=== PATIENT | female | born 1955 | race Caucasian/White ===

== ENCOUNTER 2020-08-03 08:13 | Inpatient (IN) ==
[2020-08-03 10:07] LABS: Basophils % 0.3 % (0.0-0.8); Eosinophils % 0.3 % (0.00-10.9); Hemoglobin 10.8 GM/DL (12.0-16.0); Immature Granulocytes % 0.4 %; Immature Granulocytes Absolute 0.05 #; Lymphocytes # 1.3 10*3/uL (1.4-4.0); Lymphocytes % 10.4 % (21.3-54.2); Mean Corpuscular Volume 75.3 FL (87-102); Mean Platelet Volume 10.6 FL (9.6-12.0); Monocytes % 6.1 % (1.7-12.7); Neutrophils % 82.5 % (38.7-73.9); Platelet Count 312 T/CUMM (130-400); Red Blood Count 4.78 MC/CUMM (3.8-5.5); Red Cell Distribution Width 16.7 % (9.3-17.3); White Blood Count 12.7 T/CUMM (4-12)
[2020-08-03] MEDS ORDERED: KETOROLAC 30 MG/1 ML VIAL IM STA (10:11)
[2020-08-03 10:51] LABS: Calcium 9.1 MG/DL (8.5-10.1); Osmolality,Calculated 274.2 MOS/KG (273-304); Potassium 3.7 MMOL/L (3.5-5.1); Uric Acid 4.1 MG/DL (2.6-6.0)
[2020-08-03 11:10] LABS: PT Patient Result 11.2 SECS (10.5-12.0)
[2020-08-03] MEDS ORDERED: HYDROmorphone 2 MG/1 ML VIAL IV STA (13:21)
[2020-08-03] MEDS ORDERED: ONDANSETRON 4 MG/2 ML VIAL IV ONE (13:21)
[2020-08-03 13:37] LABS: Cholesterol Crystals None Seen /LPF
[2020-08-03 13:48] LABS: Lymphocytes,Synovial Fluid 2 %; Neutrophils,Synovial Fluid 91 %
[2020-08-03] MEDS ORDERED: BACITRACIN 50,000 UNIT VIAL ONE (14:54)
[2020-08-03] MEDS ORDERED: ONDANSETRON 4 MG/2 ML VIAL IV PRN (14:57)
[2020-08-03] MEDS ORDERED: GLUCAGON 1 MG VIAL IM PRN (14:57)
[2020-08-03] MEDS ORDERED: DEXTROSE 50% 25 GM/50 ML VIAL IV PRN (14:57)
[2020-08-03] MEDS ORDERED: hydrALAZINE 20 MG/1 ML VIAL IV PRN (14:57)
[2020-08-03] MEDS ORDERED: MORPHINE 4 MG/1 ML VIAL IV PRN (14:57)
[2020-08-03] MEDS ORDERED: ACETAMINOPHEN 325 MG TABLET PO PRN (14:57)
[2020-08-03] MEDS ORDERED: BUPIVACAINE MPF 0.25% 30 ML VIAL ONE (15:09)
[2020-08-03] MEDS ORDERED: MIDAZOLAM 2 MG/2 ML VIAL ONE (15:17)
[2020-08-03] MEDS ORDERED: fentaNYL 100 MCG/2 ML VIAL ONE ×2 (15:17→15:54)
[2020-08-03] MEDS ORDERED: VANCOMYCIN INJ 1,000 MG in SODIUM CHLORIDE 0.9% 250 ML IV SCH (15:30)
[2020-08-03] MEDS ORDERED: VANCOMYCIN 1,000 MG VIAL ONE (15:44)
[2020-08-03] MEDS ORDERED: SEVOFLURANE 1 UNIT/15 MINUTE INH ONE ×4 (16:08→16:18)
[2020-08-03] MEDS ORDERED: DEXAMETHASONE 4 MG/1 ML VIAL ONE (16:08)
[2020-08-03] MEDS ORDERED: LACTATED RINGERS 1,000 ML IV ONE (16:08)
[2020-08-03] MEDS ORDERED: SUCCINYLCHOLINE 200 MG/10 ML VIAL ONE (16:08)
[2020-08-03] MEDS ORDERED: propofoL 200 MG/20 ML VIAL IV ONE (16:08)
[2020-08-03] MEDS ORDERED: SODIUM CHLORIDE 0.9% 250 ML IV ONE (16:08)
[2020-08-03] MEDS ORDERED: ROCURONIUM 50 MG/5 ML VIAL IV ONE (16:08)
[2020-08-03] MEDS ORDERED: LIDOCAINE 2% 5 ML VIAL ONE (16:08)
[2020-08-03] MEDS ORDERED: ONDANSETRON 4 MG/2 ML VIAL ONE (16:08)
[2020-08-03 16:51] LABS: Cholesterol Crystals None Seen /LPF
[2020-08-03 16:52] LABS: Cholesterol Crystals None Seen /LPF
[2020-08-03] MEDS: SODIUM CHLORIDE 0.9% 1,000 ML IV SCH (17:38)
[2020-08-03] MEDS ORDERED: VANCOMYCIN INJ 2,250 MG in SODIUM CHLORIDE 0.9% 500 ML IV ONE (20:00)
[2020-08-03] MEDS: POTASSIUM CHLORIDE 10 MEQ TABLET PO SCH (22:05)
[2020-08-03] MEDS: MONTELUKAST 10 MG TABLET PO SCH (22:05)
[2020-08-03] MEDS: PARoxetine 20 MG TABLET PO SCH (22:05)
[2020-08-03] MEDS: AMITRIPTYLINE 25 MG TABLET PO SCH (22:06)
[2020-08-03] MEDS: LUBIPROSTONE 24 MCG CAPSULE PO SCH (22:06)
[2020-08-03] MEDS: INSULIN LISPRO 100 UNIT/ML SUBCUT SCH (22:06)
[2020-08-03] MEDS: ATORVASTATIN 40 MG TABLET PO SCH (22:06)
[2020-08-04 03:47] LABS: Bacteria,Urine Occasional /HPF (Few); Bilirubin,Urine Negative (Negative); Blood, Urine Negative (Negative); Glucose,Urine (UA) >=500 mg/dL (Negative); Ketones,Urine 5 mg/dL (Negative); Mucus,Urine Occasional /LPF (Occasional); Nitrite,Urine Negative (Negative); Protein,Urine Negative; RBC,Urine 1 /HPF (0-4); Squamous Epithelial Cell,Urine Occasional /HPF (0-10); Urine Appearance CLEAR (Clear); Urine Color Straw (Yellow); Urine Urobilinogen < 2.0 EU/DL (0.2-1.0)
[2020-08-04 06:33] LABS: Basophils % 0.3 % (0.0-0.8); Eosinophils % 0.1 % (0.00-10.9); Hematocrit 29.4 VOL% (35.7-47.0); Hemoglobin 9.1 GM/DL (12.0-16.0); Immature Granulocytes % 0.4 %; Immature Granulocytes Absolute 0.04 #; Lymphocytes # 1.5 10*3/uL (1.4-4.0); Lymphocytes % 14.7 % (21.3-54.2); Mean Platelet Volume 10.5 FL (9.6-12.0); Monocytes % 8.9 % (1.7-12.7); Neutrophils % 75.6 % (38.7-73.9); Platelet Count 277 T/CUMM (130-400); Red Blood Count 3.87 MC/CUMM (3.8-5.5); Red Cell Distribution Width 16.8 % (9.3-17.3); White Blood Count 10.2 T/CUMM (4-12)
[2020-08-04 07:07] LABS: Calcium 8.8 MG/DL (8.5-10.1); Osmolality,Calculated 277.1 MOS/KG (273-304); Potassium 3.6 MMOL/L (3.5-5.1); Risk Ratio 3.85; Thyroid Stimulating Hormone 0.883 uIU/ml (0.358-3.74)
[2020-08-04] MEDS: LUBIPROSTONE 24 MCG CAPSULE PO SCH ×2 (08:44→20:02)
[2020-08-04] MEDS: INSULIN LISPRO 100 UNIT/ML SUBCUT SCH ×4 (08:44→20:02)
[2020-08-04] MEDS: hydroCHLOROthiazide 25 MG TABLET PO SCH (08:45)
[2020-08-04] MEDS: POTASSIUM CHLORIDE 10 MEQ TABLET PO SCH ×2 (08:45→20:02)
[2020-08-04] MEDS: PANTOPRAZOLE 40 MG TABLET PO SCH (08:46)
[2020-08-04] MEDS: LEVOTHYROXINE 100 MCG TABLET PO SCH (08:46)
[2020-08-04] MEDS: glipiZIDE 10 MG TABLET PO SCH (08:46)
[2020-08-04] MEDS: sitaGLIPtin 100 MG TABLET PO SCH (08:46)
[2020-08-04] MEDS: VANCOMYCIN INJ 1,250 MG in SODIUM CHLORIDE 0.9% 250 ML IV SCH ×2 (11:12→20:03)
[2020-08-04] MEDS: SODIUM CHLORIDE 0.9% 1,000 ML IV SCH (14:37)
[2020-08-04] MEDS: PARoxetine 20 MG TABLET PO SCH (20:01)
[2020-08-04] MEDS: AMITRIPTYLINE 25 MG TABLET PO SCH (20:01)
[2020-08-04] MEDS: ATORVASTATIN 40 MG TABLET PO SCH (20:02)
[2020-08-04] MEDS: MONTELUKAST 10 MG TABLET PO SCH (20:02)
[2020-08-05 05:52] LABS: Basophils % 0.3 % (0.0-0.8); Eosinophils # 0.1 10*3/uL (0.0-0.87); Eosinophils % 1.6 % (0.00-10.9); Hematocrit 28.6 VOL% (35.7-47.0); Hemoglobin 8.4 GM/DL (12.0-16.0); Immature Granulocytes % 0.9 %; Immature Granulocytes Absolute 0.08 #; Lymphocytes # 2.2 10*3/uL (1.4-4.0); Lymphocytes % 24.7 % (21.3-54.2); Mean Corpuscular HGB Conc 29.4 GM/DL (32-36); Mean Corpuscular Volume 78.1 FL (87-102); Mean Platelet Volume 10.4 FL (9.6-12.0); Monocytes % 8.1 % (1.7-12.7); Neutrophils % 64.4 % (38.7-73.9); Platelet Count 252 T/CUMM (130-400); Red Blood Count 3.66 MC/CUMM (3.8-5.5); Red Cell Distribution Width 16.7 % (9.3-17.3); White Blood Count 8.7 T/CUMM (4-12)
[2020-08-05 06:11] LABS: Calcium 8.3 MG/DL (8.5-10.1); Osmolality,Calculated 272.5 MOS/KG (273-304)
[2020-08-05] MEDS ORDERED: POTASSIUM CHLORIDE 20 MEQ TABLET PO PRN (08:00)
[2020-08-05] MEDS ORDERED: POTASSIUM CHLORIDE RIDER 10 MEQ in PREMIX 1 EACH IV PRN (08:00)
[2020-08-05] MEDS: INSULIN LISPRO 100 UNIT/ML SUBCUT SCH ×4 (08:57→20:34)
[2020-08-05] MEDS: glipiZIDE 10 MG TABLET PO SCH (08:57)
[2020-08-05] MEDS: sitaGLIPtin 100 MG TABLET PO SCH (08:57)
[2020-08-05] MEDS: hydroCHLOROthiazide 25 MG TABLET PO SCH (08:57)
[2020-08-05] MEDS: LEVOTHYROXINE 100 MCG TABLET PO SCH (08:57)
[2020-08-05] MEDS: POTASSIUM CHLORIDE 10 MEQ TABLET PO SCH ×2 (08:57→20:33)
[2020-08-05] MEDS: PANTOPRAZOLE 40 MG TABLET PO SCH (08:57)
[2020-08-05] MEDS: POTASSIUM CHLORIDE 20 MEQ TABLET PO SCH ×2 (08:58→13:38)
[2020-08-05] MEDS: SODIUM CHLORIDE 0.9% 1,000 ML IV SCH (08:58)
[2020-08-05] MEDS: VANCOMYCIN INJ 1,250 MG in SODIUM CHLORIDE 0.9% 250 ML IV SCH ×2 (08:58→20:35)
[2020-08-05] MEDS: LUBIPROSTONE 24 MCG CAPSULE PO SCH ×2 (09:58→22:41)
[2020-08-05] MEDS ORDERED: NITROGLYCERIN SL 0.4 MG TABLET SL ONE (18:15)
[2020-08-05] MEDS ORDERED: NITROGLYCERIN SL 0.4 MG TABLET SL PRN (18:22)
[2020-08-05] MEDS: ATORVASTATIN 40 MG TABLET PO SCH (20:33)
[2020-08-05] MEDS: PARoxetine 20 MG TABLET PO SCH (20:33)
[2020-08-05] MEDS: AMITRIPTYLINE 25 MG TABLET PO SCH (20:33)
[2020-08-05] MEDS: MONTELUKAST 10 MG TABLET PO SCH (20:34)
[2020-08-06 07:02] LABS: Basophils % 0.5 % (0.0-0.8); Eosinophils # 0.1 10*3/uL (0.0-0.87); Eosinophils % 1.5 % (0.00-10.9); Hematocrit 27.7 VOL% (35.7-47.0); Hemoglobin 8.2 GM/DL (12.0-16.0); Immature Granulocytes % 0.4 %; Immature Granulocytes Absolute 0.03 #; Lymphocytes # 1.7 10*3/uL (1.4-4.0); Lymphocytes % 22.1 % (21.3-54.2); Mean Corpuscular HGB Conc 29.6 GM/DL (32-36); Mean Platelet Volume 10.8 FL (9.6-12.0); Monocytes % 8.7 % (1.7-12.7); Neutrophils % 66.8 % (38.7-73.9); Platelet Count 257 T/CUMM (130-400); Red Blood Count 3.55 MC/CUMM (3.8-5.5); Red Cell Distribution Width 16.8 % (9.3-17.3); White Blood Count 7.5 T/CUMM (4-12)
[2020-08-06 07:19] LABS: Calcium 8.4 MG/DL (8.5-10.1); Osmolality,Calculated 277.1 MOS/KG (273-304); Potassium 3.2 MMOL/L (3.5-5.1)
[2020-08-06 07:33] LABS: Eosinophils 2 % (0-10); Hypochromasia 1+; Lymphocytes 16 % (20-55); Segmented Neutrophils 73 % (50-85); Total Cells Counted 100
[2020-08-06 07:34] LABS: Microcytosis 1+; Ovalocytes Slight; Platelet Estimate Normal; Polychromasia Slight
[2020-08-06] MEDS: glipiZIDE 10 MG TABLET PO SCH (08:02)
[2020-08-06] MEDS: sitaGLIPtin 100 MG TABLET PO SCH (08:02)
[2020-08-06] MEDS: INSULIN LISPRO 100 UNIT/ML SUBCUT SCH ×4 (08:02→21:36)
[2020-08-06] MEDS: hydroCHLOROthiazide 25 MG TABLET PO SCH (08:03)
[2020-08-06] MEDS: LEVOTHYROXINE 100 MCG TABLET PO SCH (08:03)
[2020-08-06] MEDS: VANCOMYCIN INJ 1,250 MG in SODIUM CHLORIDE 0.9% 250 ML IV SCH ×2 (08:03→21:15)
[2020-08-06] MEDS: PANTOPRAZOLE 40 MG TABLET PO SCH (08:03)
[2020-08-06] MEDS: POTASSIUM CHLORIDE 10 MEQ TABLET PO SCH ×2 (08:03→21:14)
[2020-08-06] MEDS: LUBIPROSTONE 24 MCG CAPSULE PO SCH ×2 (08:03→21:15)
[2020-08-06] MEDS: FERROUS SULFATE 325 MG TABLET PO SCH (08:03)
[2020-08-06] MEDS: SODIUM CHLORIDE 0.9% 1,000 ML IV SCH ×2 (08:14→23:17)
[2020-08-06] MEDS: INDOMETHACIN 25 MG CAPSULE PO SCH ×3 (09:03→16:54)
[2020-08-06] MEDS ORDERED: POTASSIUM CHLORIDE 20 MEQ TABLET PO ONE (11:00)
[2020-08-06] MEDS: cefTRIAXone 2,000 MG in SODIUM CHLORIDE 0.9% 100 ML IV SCH (12:20)
[2020-08-06] MEDS: AMITRIPTYLINE 25 MG TABLET PO SCH (21:14)
[2020-08-06] MEDS: ATORVASTATIN 40 MG TABLET PO SCH (21:14)
[2020-08-06] MEDS: MONTELUKAST 10 MG TABLET PO SCH (21:14)
[2020-08-06] MEDS: PARoxetine 20 MG TABLET PO SCH (21:14)
[2020-08-06] MEDS: ENOXAPARIN 40 MG/0.4 ML SYRINGE SUBCUT SCH (21:15)
[2020-08-07] MEDS: SODIUM CHLORIDE 0.9% 1,000 ML IV SCH (05:07)
[2020-08-07 05:26] LABS: Basophils # 0.1 10*3/uL (0.0-0.2); Basophils % 0.9 % (0.0-0.8); Eosinophils # 0.1 10*3/uL (0.0-0.87); Eosinophils % 2.2 % (0.00-10.9); Hematocrit 27.4 VOL% (35.7-47.0); Immature Granulocytes % 0.4 %; Immature Granulocytes Absolute 0.02 #; Lymphocytes # 1.6 10*3/uL (1.4-4.0); Lymphocytes % 27.9 % (21.3-54.2); Mean Corpuscular HGB Conc 29.2 GM/DL (32-36); Mean Corpuscular Volume 78.1 FL (87-102); Mean Platelet Volume 10.4 FL (9.6-12.0); Monocytes % 8.5 % (1.7-12.7); Neutrophils % 60.1 % (38.7-73.9); Platelet Count 253 T/CUMM (130-400); Red Blood Count 3.51 MC/CUMM (3.8-5.5); Red Cell Distribution Width 16.8 % (9.3-17.3); White Blood Count 5.6 T/CUMM (4-12)
[2020-08-07 05:37] LABS: Calcium 8.3 MG/DL (8.5-10.1); Osmolality,Calculated 277.1 MOS/KG (273-304); Potassium 3.2 MMOL/L (3.5-5.1)
[2020-08-07 06:01] LABS: Hypochromasia 1+; Microcytosis 1+; Platelet Estimate Adequate
[2020-08-07 07:52] LABS: Sedimentation Rate-Westergren 91 MM/HR (0-30)
[2020-08-07] MEDS: sitaGLIPtin 100 MG TABLET PO SCH (09:32)
[2020-08-07] MEDS: PANTOPRAZOLE 40 MG TABLET PO SCH (09:32)
[2020-08-07] MEDS: hydroCHLOROthiazide 25 MG TABLET PO SCH (09:32)
[2020-08-07] MEDS: VANCOMYCIN INJ 1,250 MG in SODIUM CHLORIDE 0.9% 250 ML IV SCH (09:32)
[2020-08-07] MEDS: INDOMETHACIN 25 MG CAPSULE PO SCH ×3 (09:32→18:34)
[2020-08-07] MEDS: POTASSIUM CHLORIDE 10 MEQ TABLET PO SCH ×2 (09:32→21:27)
[2020-08-07] MEDS: LUBIPROSTONE 24 MCG CAPSULE PO SCH ×2 (09:32→21:27)
[2020-08-07] MEDS: glipiZIDE 10 MG TABLET PO SCH (09:32)
[2020-08-07] MEDS: FERROUS SULFATE 325 MG TABLET PO SCH (09:32)
[2020-08-07] MEDS: LEVOTHYROXINE 100 MCG TABLET PO SCH (09:32)
[2020-08-07] MEDS: INSULIN LISPRO 100 UNIT/ML SUBCUT SCH ×4 (09:41→21:27)
[2020-08-07] MEDS: cefTRIAXone 2,000 MG in SODIUM CHLORIDE 0.9% 100 ML IV SCH (11:13)
[2020-08-07] MEDS: MONTELUKAST 10 MG TABLET PO SCH (21:26)
[2020-08-07] MEDS: AMITRIPTYLINE 25 MG TABLET PO SCH (21:26)
[2020-08-07] MEDS: PARoxetine 20 MG TABLET PO SCH (21:26)
[2020-08-07] MEDS: ATORVASTATIN 40 MG TABLET PO SCH (21:27)
[2020-08-07] MEDS: ENOXAPARIN 40 MG/0.4 ML SYRINGE SUBCUT SCH (21:27)
[2020-08-08] MEDS: SODIUM CHLORIDE 0.9% 1,000 ML IV SCH (04:30)
[2020-08-08 05:45] LABS: Basophils % 0.7 % (0.0-0.8); Eosinophils # 0.2 10*3/uL (0.0-0.87); Eosinophils % 2.8 % (0.00-10.9); Hemoglobin 7.5 GM/DL (12.0-16.0); Immature Granulocytes % 0.5 %; Immature Granulocytes Absolute 0.03 #; Lymphocytes # 1.6 10*3/uL (1.4-4.0); Lymphocytes % 26.6 % (21.3-54.2); Mean Corpuscular HGB Conc 28.8 GM/DL (32-36); Mean Corpuscular Volume 78.5 FL (87-102); Mean Platelet Volume 10.8 FL (9.6-12.0); Monocytes % 7.5 % (1.7-12.7); Neutrophils % 61.9 % (38.7-73.9); Platelet Count 262 T/CUMM (130-400); Red Blood Count 3.31 MC/CUMM (3.8-5.5); White Blood Count 6.1 T/CUMM (4-12)
[2020-08-08 06:09] LABS: Eosinophils 4 % (0-10); Hypochromasia 1+; Lymphocytes 19 % (20-55); Segmented Neutrophils 68 % (50-85); Total Cells Counted 100
[2020-08-08 06:10] LABS: Microcytosis 1+; Ovalocytes Slight; Platelet Estimate Normal
[2020-08-08 06:26] LABS: Potassium 3.1 MMOL/L (3.5-5.1)
[2020-08-08] MEDS ORDERED: MAGNESIUM HYDROXIDE SUSP 30 ML UDCUP PO PRN (08:53)
[2020-08-08] MEDS: INSULIN LISPRO 100 UNIT/ML SUBCUT SCH ×2 (09:11→12:26)
[2020-08-08] MEDS: glipiZIDE 10 MG TABLET PO SCH (09:14)
[2020-08-08] MEDS: INDOMETHACIN 25 MG CAPSULE PO SCH ×2 (09:14→12:26)
[2020-08-08] MEDS: LUBIPROSTONE 24 MCG CAPSULE PO SCH (09:14)
[2020-08-08] MEDS: POTASSIUM CHLORIDE 10 MEQ TABLET PO SCH (09:14)
[2020-08-08] MEDS: FERROUS SULFATE 325 MG TABLET PO SCH (09:15)
[2020-08-08] MEDS: hydroCHLOROthiazide 25 MG TABLET PO SCH (09:15)
[2020-08-08] MEDS: sitaGLIPtin 100 MG TABLET PO SCH (09:15)
[2020-08-08] MEDS: PANTOPRAZOLE 40 MG TABLET PO SCH (09:15)
[2020-08-08] MEDS: LEVOTHYROXINE 100 MCG TABLET PO SCH (09:15)
[2020-08-08] MEDS ORDERED: POTASSIUM CHLORIDE 10 MEQ TABLET PO ONE (11:00)
[2020-08-08] MEDS ORDERED: POTASSIUM CHLORIDE 20 MEQ TABLET PO ONE (12:00)
[2020-08-08 12:04] VITALS: BP 140/68
== END 2020-08-08 13:17 | disposition swing bed (61) | DRG 554 ==
LOC: N.ED 08:13 → N.EDINP 14:57 → SUATTDRO 14:57 → N.EDINP 15:27 → N.5E 15:48
PROVIDERS: ADMIT Internal Medicine Geriatric Medicine; ATTEND Internal Medicine